=== PATIENT | female | born 1940 | race Caucasian/White ===

== ENCOUNTER 2019-07-15 10:46 | Inpatient (IN) | payer OTHER ==
[~2019-07-15] VITALS: Ht 154.9 cm; Wt 53.1 kg
[2019-07-15 10:48] VITALS: BP 140/64
[2019-07-15 11:40] LABS: ABSOLUTE NEUTROPHILS 3.2 thou/uL (1.4-8.2); BASOPHILS 0.5 % (0.0-2.0); EOSINOPHILS 1.5 % (0.0-3.0); HEMATOCRIT 38.5 % (37.0-47.0); LYMPHOCYTES 11.4 % (24.0-44.0); MCH 30.3 pg (26.0-34.0); MCHC 33.7 g/dL (28.0-37.0); MCV 89.8 fL (80.0-100.0); MONOCYTES 10.8 % (1.0-8.0); PLATELET COUNT 222 thou/uL (150-400); POLYS 75.8 % (36.0-66.0); RBC 4.29 mil/uL (4.20-5.00); WBC 4.3 thou/uL (4.0-11.0)
[2019-07-15 11:51] LABS: ANION GAP 9 mmol/L (7-16); BUN 13 mg/dL (7-18); CALCIUM 9.2 mg/dL (8.5-10.1); CHLORIDE 105 mmol/L (98-107); CO2 26 mmol/L (21-32); CREATININE 0.8 mg/dL (0.6-1.0); GLUCOSE 107 mg/dL (74-106); POTASSIUM 4.2 mmol/L (3.5-5.1); SODIUM 140 mmol/L (136-145)
[2019-07-15 11:58] LABS: URINE BILIRUBIN NEGATIVE (Negative); URINE BLOOD NEGATIVE (Negative); URINE CLARITY CLEAR; URINE COLOR YELLOW; URINE GLUCOSE-RANDOM* NEGATIVE (Negative); URINE KETONES NEGATIVE (Negative); URINE LEUKOCYTES-REFLEX TRACE (Negative); URINE NITRITE-REFLEX NEGATIVE (Negative); URINE PROTEIN (DIPSTICK) NEGATIVE (Negative); URINE SPECIFIC GRAVITY 1.015 (1.005-1.035); URINE UROBILINOGEN 0.2 E.U./dl (0.2-1.0)
[2019-07-15 11:58] LABS: ALBUMIN 3.1 g/dL (3.4-5.0); SGOT 18 U/L (15-37); SGPT 21 U/L (30-65); TOTAL BILIRUBIN 0.8 mg/dL (<0.1-1.0); TOTAL PROTEIN 6.9 g/dL (6.4-8.2)
[2019-07-15 11:59] LABS: SALICYLATE < 2.8 mg/dL (2.8-20.0)
[2019-07-15 12:07] LABS: AMP/METHAMP Negative (Negative); BARBITURATES Negative (Negative); BENZODIAZEPINES Negative (Negative); COCAINE Negative (Negative); METHADONE Negative (Negative); OPIATES Negative (Negative); PCP Negative (Negative)
[2019-07-15 12:35] VITALS: BP 140/64
[2019-07-15 12:57] VITALS: BP 140/64
--- NOTE | 2019-07-15 13:51 | EKG ---
[facility] [place] [address] ELECTROCARDIOGRAM REPORT Name: KENJIFAISAL Room #: 52-A ADM IN M.R.#: [id number] Admission: 07/15/19 Attend Phys: Terrell Petersen DO Discharge: Date of : 40 Report #: [id number] THIS REPORT FOR: //name// [facility] ED Test Date: 2019-07-15 Test Time: 11:07:50 Pat Name: FAISAL PHILLIP Department: Room: [place] Gender: F Contact And Service Clerks Supervisor: SHAE : 1940 Requested By: Zarina Bajwa Order Number: [id number] MD: Reed Benavidez Measurements Intervals [place] Rate: 83 P: 77 AR: 147 QRS: -30 QRSD: 68 T: 32 QT: 383 QTc: 450 Interpretive Statements Sinus rhythm Inferior infarct, old Poor R wave progression Artifact in lead(s) I,II,III,aVR,aVL,aVF No previous ECG available for comparison Electronically Signed On 07-15-2019 13:51:23 PLATE GRAINER by Reed Benavidez [email or web address] <ELECTRONICALLY SIGNED> By: Reed Benavidez MD, [facility] 07/15/19 1351 1107 1107 Reed Benavidez MD, [facility] /EPI
--- NOTE | 2019-07-15 14:26 | NUR ---
Gefof met with pt to start the intake assessment. Pt was disorganized and a poor historian. Sw also met with dght before she left the unit and she completed the assessment. Pt has private funds and lives at the [facility]. Dght is not staisfied with the level of dementia and is looking for alternate housing. GEOFF provided her with a list of [place] memory care to look at this weekend and set up a fmaily meeting on 07/20 at 11:45 am
[2019-07-15] MEDS ORDERED: ALENDRONATE SOD70 MG PO (14:54)
[2019-07-15] MEDS ORDERED: CHILDREN'S ASPI81 M1 PO (14:55)
[2019-07-15] MEDS ORDERED: ATORVASTATIN CA20 MG PO (14:56)
[2019-07-15] MEDS ORDERED: CALCIUM500 MG PO (14:59)
[2019-07-15] MEDS ORDERED: FLUOXETINE HCL10 M1 PO (15:00)
[2019-07-15] MEDS ORDERED: CLONAZEPAM 0.50.5 M1 PO ×2 (15:02→15:16)
[2019-07-15] MEDS ORDERED: LORAZEPAM 0.50.5 MG PO (15:06)
--- NOTE | 2019-07-15 15:06 | NUR ---
SW completed the intake assessment and TP.
[2019-07-15] MEDS ORDERED: MELATONIN3 M1 PO (15:07)
[2019-07-15] MEDS ORDERED: SUPER THERAVIT1 EACH PO (15:09)
[2019-07-15] MEDS ORDERED: PRESERVISION A1 EACH PO (15:09)
[2019-07-15] MEDS ORDERED: SEROQUEL 50 MG50 M1 PO ×3 (15:11→15:12)
[2019-07-15] MEDS ORDERED: ACETAMINOPHEN PO (15:15)
[2019-07-15] MEDS ORDERED: SEROQUEL 25 MG25 MG PO (15:17)
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
--- NOTE | 2019-07-15 22:06 | NUR ---
ASSUMED CARE ON 07/15/18 @ 19:30, IN BED EYES CLOSED, RESPIRATIONS EVEN AND UNLABORED. ONE ON ONE SITTER WITH PATIENT.
--- NOTE | 2019-07-16 01:00 | NUR ---
AWOKE @ 0030, TOOK SHEETS AND BLANKETS OFF THE BED, URINATED ON THE FLOOR, TOOK CLOTHES OFF, POURED WATER INTO THE HEATER VENT, TRIED TO TAKE ALL THE HVAC AND OXYGEN BOXES OFF THE WALL, WALKED AT A FAST PACE AROUND THE ROOM LOOKING FOR SOMETHING TO PUSH, PULL OR TEAR OFF. ORDER OBTAINED FROM ROZ KELLEY NP FOR 10MG GEODON IM. GIVEN WITH X1 SECURITY AND X3 NURSING STAFF AT 0045. INJECTION GIVEN IN THE RIGHT BUTTOCK, TOLERATED WELL. PATIENT WALKED THE HALLS FOR ABOUT 10 MINUTES AND THEN LAID DOWN IN BED. ONE ON ONE SUPERVISION DURING THIS TIME.
[2019-07-16 01:12] VITALS: BP 140/64
--- NOTE | 2019-07-16 03:38 | NUR ---
AWOKE @ 0300 AND WAS CHATTING WITH THE ONE ON ONE SITTER ABOUT [place]. PROVIDED PUDDING FOR A SNACK, ATE A LITTLE PUDDING AND THEN WENT BACK TO SLEEP. BED IN LOW POSITION, BED ALARM SET, WILL CONTINUE TO MONITOR ON A ONE ON ONE BASIS UNTIL PATIENT GOES TO SLEEP.
--- NOTE | 2019-07-16 05:35 | NUR ---
slept 6 hours overnight
[2019-07-16 08:30] VITALS: BP 118/57
--- NOTE | 2019-07-16 09:12 | NUR ---
PT UP AD SOMMER THIS AM WITH 1:1 SITTER. PT DID TAKE TIME TO EAT BREAKFAST. PT TOOK MEDS WHOLE. PT NEEDED TO HAVE SOME MEDS PUT IN YOGART. PT WANTED TO PUT MED CUP IN POCKET IN GOWN, NO POCKET THERE. PT RAMBLES IN SPEECH. PT DID SIT A LITTLE THIS AM WITH WOODEN PUZZLE PIECES. PT DOES NAP A LITTLE BIT THIS AM.
--- NOTE | 2019-07-16 11:49 | EKG ---
[facility] [address] [address] [place] [address] ELECTROCARDIOGRAM REPORT Name: ADALID PHILLIPLINE Room #: 52-A ADM IN M.R.#: [id number] Admission: 07/15/19 Attend Phys: Terrell Petersen DO Discharge: Date of : 40 Report #: [id number] THIS REPORT FOR: //name// [facility] ED Test Date: 2019-07-15 Test Time: 11:25:24 Pat Name: FAISAL PHILLIP Department: Room: 52 A Gender: F Solar Installation Technician: SHAE : 1940 Requested By: Terrell Petersen Order Number: [id number] MD: Reed Benavidez Measurements Intervals [place] Rate: 78 P: [place]: QRS: 2 QRSD: 91 T: 35 QT: 408 QTc: 465 Interpretive Statements Atrial fibrillation Compared to ECG 07/15/2019 11:07:50 Atrial fibrillation has replaced sinus rhythm Electronically Signed On 07-16-2019 11:48:24 DENTAL EQUIPMENT INSTALLER AND SERVICER by Reed Benavidez [email or web address] <ELECTRONICALLY SIGNED> By: Reed Benavidez MD, [facility] 07/16/19 1148 1125 1125 Reed Benavidez MD, FAC /EPI
--- NOTE | 2019-07-16 13:14 | NUR ---
PT WALKING AROUND UNIT PACING. PT WORRIED ABOUT TAXES. PT DIDN'T WANT TO EAT LUNCH DUE TO WORRING ABOUT TAXES.
--- NOTE | 2019-07-16 16:47 | NUR ---
PT UP PACING IN THE RESENDIZ. PT GRABBING ITEMS AND TALKING TO OTHER PT FAMILY MEMBERS. GIVING SEROQUEL 50MG PO IN VANELLA PUDDING. PT SMELLED IT AND STATED THAT IT HAD PEPPERMINT IN IT. WILL TRY TO GIVE WITH SUPPER.
--- NOTE | 2019-07-16 16:57 | NUR ---
PT TOOK SEROQUEL 50MG PO CRUSHED IN PUDDING WITH ASSISTANCE FROM RAVINDER GOFF GEOLOGICAL SCIENCE TEACHER. PT MOVING TABLES AND CHAIRS IN DINING ROOM.
--- NOTE | 2019-07-16 18:23 | NUR ---
PT STILL PACING UP THE RESENDIZ AND RUNNING. PT TRYING TO FLIP OVER CHAIRS TO SEE IF THEY ARE MADE RIGHT. PT ALSO RAMBING CHAIR INTO A DOOR.
--- NOTE | 2019-07-17 00:25 | NUR ---
PATIENT AOX1 CONFUSED AND FORGETFUL. PATIENT IS NOT ABLE TO PARTICIPATE WITH ASSESSMENT. PATIENT HAS DISORGANISED SPEECH.PATIENT WAS MANIC THIS SHIFT, AND COULD NOT SIT AFTER SEVERAL ATTEMPT, PATIENT WAS GETTING AGITATED WITH STAFF WHEN STAFF TRYING TO REDIRECT .PIPPA GARCIA GIVEN PER DR. MALDONADO. PATIENT TOOK HS MEDS WITH ALOT OF ENCOURAGEMENT. PATIENT IS ON 1:1 FOR SAFETY WHILE AWAKE. PATIENT IS EASY TO REDIRECT AT TIMES. PATIENT HAD A FLAT AFFECT, POOR EYE CONTACT, FAIR GROOMING AND HYGIENE. PATIENT IN BED ASLEEP AT THIS TIME BREATHING REGULAR AND UNLABOURED.
[2019-07-17 09:26] VITALS: BP 149/79
--- NOTE | 2019-07-17 10:57 | NUR ---
Has been up and down, 1:1 observation while awake, she is less figity, but still to the point needs redirected multiple times, she has been seen pacing halls in a rapid speed, again requested her slow down which she does, she ate some of her breakfast and will sit quietly for a short time, she has also gone to her room to lay down as well, she is alert but confused oriented to name only, she took meds crushed in applesauce, voices no SI/HI or AVH. Continue to monitor for safety and behaviors.
[2019-07-17 20:25] VITALS: BP 118/60
--- NOTE | 2019-07-18 01:43 | NUR ---
ASSUMED CARE FROM DAY SHIFT PT PACING THE DAY ROOM WITH 1:1 STAFF , PICKING UP TRASH BAG DUMPING ON FLOOR AND THROWING OVER AND TURNING OVER CHAIRS, PT TOLTALLY CONFUSED UNABLE TO FOLLOW DIRECTION OR COMMAND. PRN GEODON GIVEN, TO NO EFFECT. PT THEN PULLED SHIRT OFF IN DAY ROOM EXPOSING SELF. PT THEN TAKEN BACK TO ROOM AND KEPT THERE WITH STAFF MEMBER. CASH PROCESSOR CALLED AND HALDOL AND ATIVAN REPEATED. AROUND 2340 PT WAS ABLE TO CLIMB INTO BED AND SLEEP. FREQ CHECK AND BED ALARM ON FOR SAFETY. WILL CONITNUE TO FOLLOW CURRENT PLAN OF CARE AND WILL REPORT CHANGES OR ABNORMAL FININGS.
[2019-07-18 09:22] VITALS: BP 150/56
--- NOTE | 2019-07-18 09:27 | NUR ---
SW received an email from [facility] requesting a referal packet. Packet sent
--- NOTE | 2019-07-18 13:02 | NUR ---
SW called [facility] and left a VM regarding placement referrals to be sent and that insurance was coevring until07/25.
--- NOTE | 2019-07-18 17:30 | NUR ---
Up pacing around unit without s/o aggression. Alert, no verbalizations or behaviors suggesstive of SI/HI. Orientated to self only. Redirectable when taking off clothes pulling objects off of shelves in room ect. Breath sounds clear t/o, bilaterally equal. Reg HR auscultated. Color pink with brisk capillary refill and palpable peripheral pulses. Active bowel sounds over soft, flat abdomen. Reg gait. 1500 Becoming agitated. Pushing 1:1 XEROX MACHINE OPERATOR away. Becoming more intrusive with peers. Scheduled quetipine given. 1630 XEROX MACHINE OPERATOR reports that quetipine did not change behavior. Continues to pace and be intrusive. Much less receptive to direction. XEROX MACHINE OPERATOR states that she is becoming more touchy feely with other pts. 10 mg Geodon given per R vastus lateralis.
[2019-07-18 19:50] VITALS: BP 106/75
--- NOTE | 2019-07-19 04:17 | NUR ---
ASSUMED CARE OF THIS PATIENT AT 1900 FOR CERTIFIED SCRUM MASTER. SHE WAS UP ENTIRE EVENING UNTIL APPROX 0300. ATTEMPTING TO PULL THINGS OFF THE WALL, TAKING THINGS FROM OTHER PATIENTS, TURNING FURNITURE OVER. VERY DIFFICULT TO REDIRECT. ORIENTED TO SELF ONLY. SPEAKING NONSENSICALLY. DID TAKE PO MEDS CRUSHED IN ICE CREAM WITH THE ONLY DIFFICULTY BEING GETTING HER TO STAND STILL. RECIEVED PRN MEDS AND A ONE TIME THORAZINE ORDER. FINALLY GOT TO BED AND APPEARS TO BE SLEEPING SOUNDLY AT THIS TIME. NO APPARENT DISTRESS. NO C/O. WILL CONTINUE TO MONITOR
--- NOTE | 2019-07-19 12:45 | NUR ---
AT 0710 ASSUMED CARE OF PATIENT ON 07/19/19. PATIENT OBSERVED WALKING HALLWAYS AND DAYROOM LOOKING TO GET IN CABINETS AND DOORS. UNABLE TO REDERECT PATIENT. PATIENT IS ON 1:1 AT THIS TIME. AT 720 PATIENT NOTED TO BE ASLEEP ON COUCH IN DAYROOM. WILL CONTINUE TO OBSERVE.
[2019-07-19 15:07] VITALS: BP 118/65
--- NOTE | 2019-07-19 15:25 | NUR ---
1300 PATIENT WILL NOT SIT STILL. MOVES AROUND DAYROOM IN ATTEMPTING TO GET INTO EVERY DOOR OR FIDGITING WITH OTHER PATIENTS. AT 1400 PATIENT IN TRYING TO GET UP, LAB EASTON ON. PATIENT IS NON STOP AND WILL NOT SIT STILL. DOCOTORS ORDER RECIEVED FOR 1X IM SHOT OF THORAZINE 25MG. IM SHOT GIVEN AT 1450. PATIENT BACK TO DAYROOM IN .
--- NOTE | 2019-07-20 03:14 | NUR ---
ASSUMED CARE OF THIS PATIENT AT 1900. REMAINS ANXIOUS AND MANIC. SLEEPING VERY LITTLE. HAS NOT BEEN DESTRUCTIVE THIS EVENING. DID RECIEVE PRN. NO C/O. NO APPARENT PHYSICAL DISTRESS. TAKES MEDS CRUSHED IN ICE CREAM WITHOUT DIFFICULTY. WILL CONTINUE TO MONITOR
--- NOTE | 2019-07-20 07:30 | NUR ---
ASSUMED CARE OF PATIENT THIS AM. PATIENT SITTING IN CHAIR IN [facility]. PATIENT CALM AND PLEASANT THIS AM. PATIENT HAS A ONE ON ONE SITTER. PATIENTS SPEECH IS GARBLED AND APHASIC. PATIENT DENIES PAIN. PATIENT AMBULATES WITHOUT ASSISTANCE. PATIENTS ASSESSMENT SHOWS CLEAR BREATH SOUNDS, HYPOACTIVE BOWEL SOUNDS, AND S1 S2 HEARD WITH AUSCULTATION. PATIENT MUCH MORE RELAXED TODAY.
[2019-07-20 08:00] VITALS: BP 101/59
[2019-07-20 08:53] VITALS: BP 101/59
--- NOTE | 2019-07-20 16:52 | NUR ---
Date of Admission: 07/15/19 Date of Activity Therapy Assessment: 07/16/2019 Activity Goal:1:1 session Initial Goal:Pt to complete one 1:1 session per day with ACCOUNTS ADJUSTABLE CLERK to increase appropriate social interactions on the milieu. Weekly progress towards goal: Did not achieve-partly due to staffing issues. Group participation level: minimal Behaviors observed: wandering, poor boundaries, intrusive, unable to follow direction, easily agitated. Plan: No change towards goal
[2019-07-20 19:28] VITALS: BP 132/58
[2019-07-20 22:34] VITALS: BP 132/58
--- NOTE | 2019-07-21 03:11 | NUR ---
PT OUT ON UNIT AND INTERACTING APPROPRIATLY. REMAINS ON 1:1. REMAINS UNPREDICTABLE, BUT BEHAVIOR MUCH IMPROVED SINCE I LAST CARED FOR HER. AFTER SNACK, TOOK HS MEDS W/O PROBLEM. PT HAS BEEN UP ALL NIGHT WITH ONLY A SHORT NAP EARLY ON. BLUNTED AFFECT.
--- NOTE | 2019-07-21 07:30 | NUR ---
Assumed care of patient this am. Patient awake sitting in wheel chair with sitter. Patients speech is garbled and nonsensical. Patient is restless. Patient can ambulate without assistance. Patient takes medications crushed in applesauce. Patients assessment shows clear breath sounds, active bowel sounds, and s1 s2 heard with auscultation.
[2019-07-21 08:00] VITALS: BP 141/63
[2019-07-21 08:33] VITALS: BP 141/63
--- NOTE | 2019-07-21 10:17 | NUR ---
Sw attempted to do 1:1 with pt but she is still unpredictable, impulsive and physically restless. Family is today. D/C plan is still memory care but assessment for new placement have not occured as there has been little to no chnage in her behavior since admission
--- NOTE | 2019-07-21 11:30 | NUR ---
Patient very restless and agitated, kicking and trying to stand up in the wheelchair. Patient recieved an IM injection of Thorazine. Will continue to monitor.
--- NOTE | 2019-07-21 12:42 | NUR ---
Geoff met with pt's dght and Dr mcaedo for a family meeting. Dr macedo reported on medication challenges and changes. Pt's dght had questions about whether the dementia or the medicaitions were causing this manic behaviors. It was explained to her that it could not be easily identified but likely her stage 6 dementia. Pt's dght was understanding and thankful for the care her mother was getting. Geoff also reached out to D CS and suggested that a visit happen for placement this or Thursday and to be informed about this prior to the visit.
[2019-07-21 19:27] VITALS: BP 133/69
--- NOTE | 2019-07-22 04:12 | NUR ---
ASSUMED CARE FROM DAY SHIFT PT SITTING IN WHEELCHAIR WITH PHANI LEMON COOPERATIVE AT THIS TIME PO MEDICATON TAKEN WITH SNACK TOLERATED WELL, PT WAS QUIET AND SLEPT THROUGHOUT ROUNDING BED ALARM ON FOR SAFETY. WILL CONITUE WITH CURRENT PLAN OF CARE.
[2019-07-22 10:36] VITALS: BP 101/58
[2019-07-22 11:49] VITALS: BP 101/58
--- NOTE | 2019-07-22 12:00 | NUR ---
ASSUMED CARE AT 0700 THIS MORNING. PT. IN BED GOTTEN UP BY POWDER LINE REPAIRER'S, TOOK HER TO THE BATHROOM. SHE REMAINS ON A 1:1 WHILE AWAKE. SHE CONTINUES TO WANDER ABOUT AIMLESSLY, STAFF BY HER SIDE. SHE REFUSED TO SIT DOWN FOR BREAKFAST, BUT DID TAKE IN A CONTAINER OF APPLESAUCE. SHE TOOK HER MEDICATIONS CRUSHED IN APPLESAUCE WITHOUT DIFFICULTIES. AFTER TAKING HER MEDICATIONS, SHE WANDERED AROUND THE UNIT FOR A WHILE AND THEN SAT AT A TABLE IN THE DINING ROOM.
[2019-07-22 19:23] VITALS: BP 119/40
[2019-07-22 21:12] VITALS: BP 114/62
--- NOTE | 2019-07-23 04:50 | NUR ---
PT CALM ET COOPERATIVE. PT CURRENTLY RESTING IN BED WITH EYES CLOSED. PT UP ET DOWN THROUGHOUT THE NOC UNTIL AFTER 1AM. PT AMBULATES HALLS AD SOMMER. PT VERY CONFUSED ET ONLY ORIENTED TO PERSON. PT LABILE AT TIMES ET SPEAKING IN NONSENSICAL TERMS. PT SLIGHTLY DIFFICULT TO REDIRECT AT TIMES. PT TAKES MEDICATIONS CRUSHED IN PUDDING WITHOUT DIFFICULTY. WILL CONTINUE TO MONITOR PER PROTOCOL.
[2019-07-23 08:00] VITALS: BP 132/67
--- NOTE | 2019-07-23 15:26 | NUR ---
GEOFF met with pt this AM. She was clear and reeady to chat. She sat in the chair and spoke about her family. Geoff later got her dght on the phone so she could enjoy some of this clarity. Later during the day this pt started to pace, and then obsess about doors- this was reported to nursing. If this continues ot trend positivily pt will be able d/c next week. GEOFF sent updates to [facility] and requested a visit for thursday assessment.
--- NOTE | 2019-07-23 16:03 | NUR ---
PATIENT ORIENTED TO SELF AND OFTEN PACING THE PSYCH UNIT AND GOING INTO PATIENT ROOMS AND LOOKING OUT THE WINDOW WITH SHORT EPISODES OF CRYING ASKING WHAT SHE NEEDS TO DUE. PATIENT USUALLY STATES SENTENCES THAT MAKE NO SENSE. PATIENT WILL SOMETIMES LOOK OUT WINDOWS AND TRY TO ORGANIZE AREAS IF THERE ARE ITEMS. PATIENT TRYS TO ORGANIZE OTHERS BELONGINGS ON THEIR FOOD TRY OR EVEN ENTER ANOTHER PATIENTS ROOM AND TRY TO ORGANIZE ITEMS OR EVEN MAKE THE BED. PATIENT GIVEN IM DOSE OF GEODON THIS AFTERNOON. PATIENT STATES SHE IS TIRED. WHEN GIVEN OPPORTUNITY TO REST PATIENT WILL NOT REST. UNABLE TO RE-DIRECT PATIENT EXCEPT FOR A FEW MINUTES. PATIENT EATS VERY LITTLE ON FOOD TRAY AND NEEDS PROMPTING TO EAT. PATIENT GIVEN SHOWER AND CHANGE OF CLOTHES TODAY. PATIENT WILL TAKE MEDS CRUSHED AND IN FOOD.
--- NOTE | 2019-07-23 18:43 | NUR ---
PATIENT CONTINUES TO PACE THIS EVENING AND RE-ARRANGE FUNITURE. ATTEMPTING TO KEEP PATIENT BUSY BY FOLDING LAUNDRY. IT HAS BEEN NECESSARY TO CLOSELY WATCH PATIENT DUE TOUCH OTHER PATIENTS BELONGINGS AND FOOD TRAYS ATTEMPTING TO ORGANIZE ITEMS. 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 REQUESTING 1:1 SITTER DUE PATIENT LACK OF BOUNDARIES AND PACING.
[2019-07-23 21:04] VITALS: BP 146/68
--- NOTE | 2019-07-24 00:21 | NUR ---
PATIENT HAD A BM IN HER ROOM ON THE FLOOR THEN PROCEEDED TO WALK THROUGH IT AND THROUGHOUT THE UNIT, STAFF ATTEMPTED TO REDIRECT HER WITH NO POSITIVE OUTCOME. GEODON IM GIVEN ORDERED.
--- NOTE | 2019-07-24 05:27 | NUR ---
PT SLIGHTLY AGITATED THIS SHIFT. PT FELL ASLEEP EARLY IN SHIFT THEN WOKE UP AROUND 0100 ET DEFECATED ON FLOOR OF ROOM. PT THEN PROCEEDED TO WALK THROUGH THE FECES UNTIL SHE CAME OUT OF ROOM INTO THE HALLWAY. PT WAS CLEANED, ROOM WAS CLEANED, ET HOUSEKEEPING WAS CALLED TO MOP FLOOR AFTER FECES HAD BEEN CLEANED BY STAFF. PT WAS GIVEN GEODON IM ET SEROQUEL PO PRN THIS SHIFT. PT FELL BACK TO SLEEP IN CHAIR IN DAYROOM AROUND 3AM. PT AMBULATES HALLS AD SOMMER. WILL CONTINUE TO MONITOR PER PROTOCOL.
[2019-07-24 07:30] VITALS: BP 149/52
[2019-07-24 09:05] VITALS: BP 149/52
--- NOTE | 2019-07-24 15:18 | NUR ---
ASSUMED CARE OF PATIENT AT 0710 AM ON 07/24/19. PATIENT AMBULATING IN RESENDIZ AT 0730 AM. AT 0745 PATIENT IN WC WITH LAP BUDDING ON, SLEEPING. PATIENT SITTING AT TABLE READY FOR BREAKFAST. PO MEDICATIONS GIVEN WITH APPLESAUCE WITHOUT DIFFICULTY. PATIENT EATING BREAKFAST WITH ASSISTANCE OF SWEATER OPERATOR. ATE 100%. PATIENT TALKING WITH SWEATER OPERATOR WITH CLEAR AND UNDERSTANDABLE WORDS. PATIENT SPEAKING CLEAR SENTENCES TALKING ABOUT HER PAST. NO COMPLAINTS OF PAIN DENIES SI/HI AND AVH. PATIENT ALERT X1. NO LOOSE STOOLS NOTED AT THIS TIME.
--- NOTE | 2019-07-24 16:38 | NUR ---
PATIENT SITTING IN WC IN DAY ROOM VISITING WITH PATIENTS AND STAFF. COMMUNICATING APPROPRIATELY AT THIS TIME.
[2019-07-24 19:53] VITALS: BP 129/67
--- NOTE | 2019-07-24 23:18 | NUR ---
ASSUMED CARE ON 07/24/19 @ 19:15, IN W/C WITH LAP EASTON IN PLACE. PROPELLING SELF AROUND THE UNIT IN HER W/C. PUSHING FURNITURE FROM HER W/C DOWN THE RESENDIZ HANDLING OTHER RESIDENTS BELONGINGS. GIVEN MEDS CRUSHED IN YOGART. NOTED TO BE MANIC, ALWAYS MOVING AND SPEAKING IN A FAST PACE, BUT USING UNRELATED WORDS AND SPEAKING OF THINGS THAT ARE NOT A CURRENT REALITY. PRN TYLENOL 650 GIVEN @ 20:50 FOR GENERAL PAIN 5/10 AND SEROQUEL 100 @ 20:50 FOR AGITATION AND SANTIAGO. REMAINS AWAKE AND IS TEARFUL OF THIS WRITING, SPEAKING OF AND A SAD MEMORY FROM HER PAST. PATIENT HAS HAD NO BM ON THIS SHIFT. WILL CONTINUE TO MONITOR Q 12 MINUTES FOR PATIENT SAFETY.
[2019-07-25 03:40] VITALS: BP 129/67
--- NOTE | 2019-07-25 06:03 | NUR ---
SLEPT 4.4 HURS
[2019-07-25 08:55] VITALS: BP 124/64
--- NOTE | 2019-07-25 11:54 | NUR ---
Nutrition: pt admitted with dementia and agitation to H unit. Seen due to LOS. Pt eating fair/highly variable amounts on regular diet. Average intake 60% over the past few days. 2 different weights taken on admit, 112# and 125#. pt is unable to relay UBW but reports no difference in the way her clothes are fitting. REC obtain new weight as last weight taken [address] will also offer ensure daily due to fair intake. Place as low risk for now.
--- NOTE | 2019-07-25 13:28 | NUR ---
[facility] came out to their assessment today. And sw recieved an email from [facility] to send the referral to [facility] to consider. This was completed. Waiting to hear from [facility]. D/C is likely after 3 positive days of limited behaviors and less manic
--- NOTE | 2019-07-25 14:14 | NUR ---
0710 ASSUMED CARE OF PATIENT ON 07/25/19. PATIENT SITTING UP IN WC IN THE DAYROOM. PATIENT MOVING AROUND IN WC WITH LAP EASTON IN PLACE. CONTINUES TO GRAB AT OTHER PATIENTS AND LOOKING TO OPEN DOORS AND OR CABINETS. PATIENT MOVED BY TIN STACKER TO A DIFFRENT AREA IN DAYROOM. AT 0930 PATIENT ASLEEP IN WC WHILE SITTING WITH OTHER PATIENTS ATTENDING IN GROUP. MEDIVATION GIVEN CRUSHED IN APPLESAUCE WITHOUT DIFFICULTY. WHEN ASKED PATIENT ABOUT PAIN PATIENT STATED NO. TIN STACKER ASKED PATIENT ABOUT A GOAL AND PATIENT RESPONDED WITH " FIRE HAS AND ACTIVATION IS DONE. PATIENT UNABLE TO VOICE GOAL OR CONCERNS. PATIENT MOVING SELF IN WC IN DAYROOM. SIPS OF H2O GIVEN.
--- NOTE | 2019-07-25 15:40 | NUR ---
PATIENT ROAMING RESENDIZ IN LOOKING FOR DOORS TO OPEN AND ROOMS TO ENTER. 1500 MED GIVEN IN APPLESAUCE, WHOLE CONTAINER OF APPLESAUCE EATEN. PATIENT STARTS TALKING ABOUT PAST TIMES IN [place]. PATIENT STATES "THE ADS WERE HARD IN [place], THERE WERE ABOUT 4 ADS". PATIENT LEAVES WRITERS SITE AND CONTINUES TO WHEEL HERSELF DOWN THE RESENDIZ. WILL CONTINUE TO MONITOR SAFETY OF PATIENT.
--- NOTE | 2019-07-25 16:12 | NUR ---
per akash with [employer] request to have copy of dpoa on file faxed to [phone], phone # [phone], cm faxed copy.
--- NOTE | 2019-07-25 16:15 | NUR ---
SW sent a referral to [facility] per family request.
--- NOTE | 2019-07-25 16:27 | NUR ---
[facility] called and stated they were interested in the pt and would be coming out later this week to complete their assessment. Sw reported all of this to daughter via email.
[2019-07-25 19:24] VITALS: BP 140/57
--- NOTE | 2019-07-26 05:25 | NUR ---
PT AMBULATING HALLS VIA W/C PUSHING FURNITURE IN DAYROOM AND ATTEMPTING TO GO INTO OTHER ROOMS OF PATIENTS. PT WITH SLIGHT AGITATION WHEN ATTEMPTING TO REDIRECT FROM OTHER PATIENT ROOMS. PT ONLY SLEPT APPROXIMATELY 1-2 HOURS THIS SHIFT. UP IN W/C IN DAYROOM MOST OF SHIFT. WILL CONTINUE TO MONITOR PER PROTOCOL.
[2019-07-26 08:00] VITALS: BP 135/76
[2019-07-26 09:46] VITALS: BP 135/76
--- NOTE | 2019-07-26 13:12 | NUR ---
SW sent a referral to [facility] per family request.
--- NOTE | 2019-07-26 14:42 | NUR ---
ASSUMED CARE OF PATIENT AT 0720 ON 07/26/19. PATIENT NOTED TO BE IN HALLWAY WANDERING IN WC. 0730 PATIENT SITTING AT TABLE QUIETLY. AT 0830 PATIENT ASSESSED AT THIS TIME. UNABLE TO ASSESS, PATIENT STARTS TALKING ABOUT PAST SITUATIONS NOT RELATED TO WHAT IS BEING ASKED. PATIENT DOES SEEM TO CALM DOWN IF YOU SIT AND TALK TO PATIENT- DOES NOT SEEM TO BE SO BUSY LOOKING FOR OPEN DOORS OR GRABING PEOPLE. WILL CONVERSE WITH HARD ROCK DRILL OPERATOR REGARDING DIFFRENT SUBJECT OF PAST SITUATIONS OF HER LIFE. AT 1030 PATIENT IN SHOWER WITH ASSISTANCE OF ADVOCACY DIRECTOR. 1130 PATIENT WANDERING THE UNIT IN A WC WITH LAP EASTON LOOKING FOR OPEN DOORS. WANDER THE UNIT LOOKING FOR OPEN DOORS. PATIENT IN WC WITH LAP EASTON ON
--- NOTE | 2019-07-26 18:10 | NUR ---
AT 1745 BRIEF CHANGED, BOTTOM ASSESSED AND NOTED TO BE RED. MOISTURE BARRIER APPLIED AND BRIEF ON. PATIENT SEEMS A BIT WARM TEMP CHECKED WITH RESULTS OF 98.7. PATIENT AMBULATING IN RESENDIZ. PATIENT SQUATS IN CORNER OF THE RESENDIZ AND PEES PATIENT CLEANED UP AND PATIENT OUT WALKING RESENDIZ AGAIN. WILL CONTINUE TO OBSERVE FOR SAFETY.
--- NOTE | 2019-07-26 18:30 | NUR ---
PATIENT SITTING IN CHAIR IN DAYROOM ASLEEP AT THIS TIME.
[2019-07-26 20:19] VITALS: BP 109/73
--- NOTE | 2019-07-27 03:03 | NUR ---
ASSUMED CARE OF PATIENT ON 07/26/2019 AT APPROXIMATELY 1915. THROUGHOUT THE EVENING PATIENT HAS BEEN ON THE COUCH WITH EYES CLOSED. SHE DOES OPEN HER EYES SPONTANEOUSLY TO THIS NURSES VOICE. SHE DID NOT VERBALIZE FEELINGS, APPEARS WITH A FLAT AFFECT, AND GUARDED. SHE DID NOT REPORT SI SH HI OR HALLUCINATIONS. SHE DOES NOT APPEAR TO BE IN MEDICAL DISTRESS. NURSING WILL MAINTAIN ALL PRECAUTIONS TO ENSURE SAFETY AT ALL TIMES.
[2019-07-27 09:24] VITALS: BP 108/54
--- NOTE | 2019-07-27 12:38 | NUR ---
During treatment team meeting this AM it was decided that pt still needs further inpt days, as she is still manic, running around the unit and getting into others personal things and rooms. Pt was visited by [facility] this AM and are willing to accept her early next week. Still waiting for a few more " good days" and [facility] or [facility] would consider this pt too.
--- NOTE | 2019-07-27 13:47 | NUR ---
Sitting in day room most of morning. Calm and cooperative. No s/o distress. Alert and orientated. Able to state name but states she is in [place]. Unable to state day. Denies pain and SI/HI. Breath sounds clear t/o, bilaterally equal. Reg HR auscultated. Color pink with brisk capillary refill and palpable peripheral pulses. Brief wet. Continent of cloudy yellow urine per toilet. Dr. Petersen notified, straight cath UA done per order without difficulty. Small amount cloudy yellow urine, sent to lab for UA. Active bowel sounds over soft, flat abdomen. Now up ambulating t/o unit without s/o distress.
[2019-07-27 14:53] LABS: URINE BLOOD 3+ (Negative); URINE CLARITY CLOUDY; URINE COLOR YELLOW; URINE GLUCOSE-RANDOM* NEGATIVE (Negative); URINE KETONES TRACE (Negative); URINE PROTEIN (DIPSTICK) 2+ (Negative); URINE SPECIFIC GRAVITY >= 1.030 (1.005-1.035); URINE UROBILINOGEN 0.2 E.U./dl (0.2-1.0)
[2019-07-27 14:55] LABS: URINE LEUKOCYTES-REFLEX 1+ (Negative); URINE NITRITE-REFLEX POSITIVE (Negative)
[2019-07-27 14:56] LABS: ICTOTEST (BILI CONFIRMATORY) Negative (Negative); URINE BILIRUBIN NEGATIVE (Negative)
[2019-07-27 15:09] LABS: SQUAMOUS 0-3 Few /LPF (0-3)
[2019-07-27 15:10] LABS: BACTERIA-REFLEX >30 Many /HPF (None Seen); CASTS None Seen /LPF (None Seen); CRYSTALS None Seen /LPF (None Seen); URINE RBC 3-10 Few /HPF (0-2); URINE WBC-REFLEX >25 Many /HPF (0-5)
[2019-07-27 20:31] VITALS: BP 118/48
--- NOTE | 2019-07-28 04:40 | NUR ---
PT CALM ET COOPERATIVE THIS SHIFT. PT TOOK MEDICATIONS CRUSHED IN PUDDING WITHOUT DIFFICULTY. PT AMBULATING WITH ASSISTANCE OF W/C ET ANSHUL MCCORMACK THIS SHIFT. PT WOULD NOT STAY IN BED SO WAS ASSISTED INTO [facility]ANGEL-CHAIR ET IS CURRENTLY RESTING IN CHAIR WITH EYES CLOSED IN DAYROOM. PT WAS GIVEN SEROQUEL 100MG PO FOR ANXIETY. WILL CONTINUE TO MONITOR PER PROTOCOL.
--- NOTE | 2019-07-28 08:29 | NUR ---
07-27-19. Geoff met with county tax assessor from [facility], and reported that pt might be ready for d/c next week, as we are still making adjustments to her meds. [facility], [facility], [facility] and [facility] are all considering this pt. GEOFF called and left 2 VM for dght today with this information. Dght will provide her #1- 4 choices.
[2019-07-28 09:18] VITALS: BP 117/56
--- NOTE | 2019-07-28 14:57 | NUR ---
Sw spoke with pt's dght and she decided that [facility] is the best fit for her mom right now. SW ecnouraged her to take some time this weekend and self care, and that d/c will likely happen early next week. She was very pleased with this outcome. Sw called [facility] and reported that she had chosen them and that there would be updates on Thursday.
--- NOTE | 2019-07-28 16:28 | NUR ---
Sleeping in dining room in chair without s/o distress. Placed in recliner for comfort. Arouses easily, obeys commands and is compliant with meds. Orientated to self only. Denies SI/HI, pain. Breath sounds clear t/o, bilaterally equal. Reg HR auscultated. Color pink with brisk capillary refill and palpable peripheral pulses. Voiding yellow urine both continent and incontinent. Active bowel sounds over soft, flat abdomenl Light brown stool per toilet. Coccyx area reddened but improved since yesterday, barrier cream applied. 1600 Up ambulating t/o unit without s/o distress. Took crushed meds without diff.
[2019-07-28 19:45] VITALS: BP 115/58
--- NOTE | 2019-07-29 03:49 | NUR ---
Pt slightly agitated this shift. Pt took meds crushed in pudding without difficulty. Pt ambulating in halls early in shift with only slightly unsteady gait. Pt was given PRN Seroquel for mild agitation/anxiety. Pt rested in recliner with eyes closed midway through shift but was transferred to bed after toileting et is currently resting in bed with eyes closed. No further behaviors noted et all health assessments WNL. Will continue to monitor per protocol.
[2019-07-29 07:35] VITALS: BP 122/55
[2019-07-29 11:41] VITALS: BP 122/55
[2019-07-29 11:52] VITALS: BP 122/55
--- NOTE | 2019-07-29 12:19 | NUR ---
1645 RESUMED CARE FROM OVERNIGHT SHIFT, PATIENT WAS UP ALERT WALKING AROUND THE DAY ROOM, STILL AT TIMES GOING INTO OTHER PATIENT'S ROOMS. PATIENT ATE BREAKFAST AND TOOK MEDICATION WITHOUT INCIDENCE. PATIENT WONDERS AROUND UNIT STILL AND HAS TO BE MONITORED FOR GOING IN [place] ROOM. COOPERATIVE, EASILY REDIRECTED, WILL CONTINUE TO MONITOR PATIENT FOR BEHAVIORS AND SAFETY.
--- NOTE | 2019-07-29 14:05 | NUR ---
SW called [facility] to confirm that d/c will be Thursday.
[2019-07-29 19:57] VITALS: BP 112/67
--- NOTE | 2019-07-30 02:02 | NUR ---
ASSUMED CARE FROM DAY SHIFT PT WLKING INTO PT ROOMS AND TOUCHING OTHER PATIENTS ON UNIT, PT REMANINS CONFUSED ALERT TO SELF ONLY, AND WILL NOT FOLLOW COMMANDS . PT DID TAKE PO MEDICATION WITH APPLE SAUCE. HS CARE GIVEN DUE TO PT BEING INCONTINENT OF URINE. PT THEN WENT TO SLEEP AROUND 2230. RESTING QUIETLY WITH BED ALARM IN PLACE. FREQ ROUNDING FOR SAFETY. WILL CONITNUE WITH CURRENT PLAN OF CARE AND WILL REPORT CHANGES.
[2019-07-30 08:21] VITALS: BP 139/58
--- NOTE | 2019-07-30 10:12 | NUR ---
0700 Sleeping without s/o distress. Awakens easily. Alert and orientated to person only. Confused speech at times. Denies SI/HI. Breath sounds clear t/o, bilaterally equal. Reg HR auscultated. Color pink with brisk capillary refill and palpable peripheral pulses. Brief dry. Active bowel sounds over soft, flat abdomen. Buttocks reddened with dry skin, no breakdown, improved from 2 days ago. Assisted with dressing. Up ambulating with steady gait. Ate 90% of breakfast with extra carton of milk and 100% of supplement.
[2019-07-30 11:00] VITALS: BP 127/63
[2019-07-30 19:23] VITALS: BP 129/57
--- NOTE | 2019-07-31 02:09 | NUR ---
ASSUMED CARE FROM DAY SHIFT PT UP WALKING IN DAYROOM AND HALLWAY , PT CONFUSED AND UN-DIRECTABLE, PT ABLE TO TAKE PO MEDICATION AND PRN GIVEN FOR AGITATION. PT THEN ASSISTED TO ROOM AND PT FELL ASLEEP. THEN AFTER 2 HOURS PT AWAKE UP IN CORNER OF ROOM AND PROCEEDED TO VOID AND HAVE NBOWEL MOVEMENT ON SELF. PT CLEAN AND PLACED BACK IN BED WITH ALARM IN PLACED. WILL CONTINUE WITH FREQ CHECKS, AND WILL REPORT CHANGES OR ABNORMAL.
[2019-07-31 07:49] VITALS: BP 119/63
--- NOTE | 2019-07-31 07:52 | NUR ---
ASSUMED CARE OF PT AT 0715. PT IS A&O TO SELF. APPEARS CONFUSED. IS STABLE. PT IS CURRENTLY SITTING IN DINNING ROOM AWAITING BREAKFAST. VITALS & LABS REVIEWED. PT IS CALM. WILL CONTINUE TO MONITOR.
[2019-07-31 19:37] VITALS: BP 106/54
--- NOTE | 2019-08-01 03:19 | NUR ---
Assumed care of pt @ 1900. Pt calm, cooperative, and very talkative this shift. Pt took meds crushed in pudding without difficulty. VSWNL. Pt ambulating via assistance of w/c with lap mary this shift. No intrusive behaviors noted this shift. Pt currently resting with eyes closed on couch in dayroom. Will continue to monitor per protocol.
[2019-08-01 07:30] VITALS: BP 111/54
--- NOTE | 2019-08-01 11:07 | NUR ---
Nutrition: pt admitted with dementia, agitation and seen per followup. po intake 50-100% of meals. 100% ensure daily. New weight obtained 117#. Prior weights of 123# and 112# on admit. Unsure of accuracy of either and pt is unable to verbalize. Plan continue same interventions and keep as low risk due to overall good intake.
--- NOTE | 2019-08-01 12:38 | NUR ---
[facility] to [facility] via [facility] confirming d/c for tomorrow. Sw called and spoke [facility] and Sw will set up transportation for 11am tomorrow. Geoff relayed this information to [facility] and nursing staff.
--- NOTE | 2019-08-01 15:21 | NUR ---
PT IS ALERT TO SELF, VERY CONFUSED. AMBULATES SELF AROUND UNIT AND IN PATIENTS ROOMS. TAKES HER MEDS CRUSHES W/O ANY COMPS. WILL CONT POC.
--- NOTE | 2019-08-01 16:14 | NUR ---
SW called and left another VM with pt's dght reassuring that d/c was stable . And made a packet and left it on the chart.
[2019-08-01 19:39] VITALS: BP 112/72
--- NOTE | 2019-08-02 04:09 | NUR ---
Assumed care of pt @ 1900. Pt calm et cooperative this shift. Pt took meds crushed in pudding without difficulty. Pt ambulating halls ad yue with steady gait this shift. VSWNL. Assessment done et found to have no abnormalities noted at present time. Pt continues to rest quietly in recliner in dayroom with eyes closed. Will continue to monitor per protocol.
[2019-08-02 07:50] VITALS: BP 113/56
[2019-08-02 08:00] VITALS: BP 113/56
--- NOTE | 2019-08-02 08:11 | NUR ---
PT TOOK MEDS CRUSHED IN PUDDING. PT TOOK REST OF PUDDING. PT UP AD SOMMER WITHOUT ANY ISSUES. PT GOES INTO OTHERS ROOMS AND TAKES ITEMS. UNABLE TO KEEP FOCUSED ON TASK AND SPEECH. PT LIKES TO FOLD LAUNDRY AND KEEP BUSY.
--- NOTE | 2019-08-02 10:14 | NUR ---
PT FOLDING SOME CLOTHES AND RUNNING UP TO STAFF AND ASKING QUESTIONS.
[2019-08-02] MEDS ORDERED: DEPAKOTE SPRIN125 MG PO (10:44)
[2019-08-02] MEDS ORDERED: LIPITOR 20 MG T20 M1 PO (10:45)
[2019-08-02] MEDS ORDERED: CHLORPROMAZINE25 M1 PO (10:46)
[2019-08-02] MEDS ORDERED: ACIDOPHILUS1 EAC4 PO (10:47)
[2019-08-02] MEDS ORDERED: VITAMIN D325 MCG PO (10:47)
--- NOTE | 2019-08-02 11:29 | NUR ---
PT NEEDED ENCOURAGEMENT TO GET INTO THE W/C FOR TRANSPORT. PT BAGS PUT ON LAP AND PT PLACED BAGS BACK ON FLOOR. PT LEFT WITH STAFF TO W/C V[facility].
--- NOTE | 2019-08-02 11:41 | NUR ---
DIAMANTE faxed d/c summary and orders to [facility]. Updated packet.
--- NOTE | 2019-08-02 11:48 | NUR ---
GAVE REPORT TO [facility].
--- NOTE | 2019-08-04 20:20 | D ---
[facility] [place] [address] DISCHARGE SUMMARY Name: FAISAL PHILLIP Room #: 522A-A [facility] IN M.R.#: [id number] Admission: 07/15/19 Attend Phys: Terrell Petersen DO Discharge: 08/02/19 Date of : 40 Report #: [id number] THIS REPORT FOR: //name// CC: Terrell Petersen [facility] unknown DATE OF SERVICE: 08/02/2019 INPATIENT PSYCHIATRIC DISCHARGE SUMMARY ATTENDING PHYSICIAN: Terrell Petersen DO. LABOR OPERATOR: Dr. Mateus Hamilton. 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 MEDICAL COMORBIDITIES: Include hyperlipidemia, osteoporosis. Dr. Hamilton recommended outpatient supplements and followup. DISCHARGE DIET: Regular. Recommend Ensure daily supplement. ACTIVITY LEVEL: As tolerated. The patient requires 24/7 memory care. DISCHARGE MEDICATIONS: Atorvastatin 20 mg p.o. at bedtime for hyperlipidemia, Depakote Sprinkles 125 mg total of 625 mg sprinkles p.o. b.i.d. after meals. She is taking 2.5 mg of chlorpromazine at 0900, 1500, 2100. She is taking lactobacillus acidophilus probiotic 1 tab p.o. daily, vitamin D supplementation 5000 international units p.o. daily, aspirin 81 mg p.o. daily for cardioprotection, atorvastatin 20 mg p.o. at bedtime, fluoxetine 10 mg p.o. daily, one vitamin p.o. daily, alendronate was discontinued during the hospitalization, but that may be resumed outpatient. LABORATORY DATA: The patient's laboratories this admission, hematology was grossly normal, done on 07/15/2019. Chemistry last done on 07/15/2019 grossly normal except albumin 3.1, ALT 21, free T4 1.1, and TSH 1.936. Urinalysis showed some positives on 07/27/2019. Microbiology on 07/27/2019 was positive for E. coli. The patient's culture fortunately was pansensitive and she was treated with Bactrim-DS p.o. b.i.d. for 10 doses. DISCHARGE MEDICATIONS: Already stated. DISPOSITION: Discharging to [facility] for memory care. REASON FOR ADMISSION: Back in early July as follows, brought to the ED by her daughter, increased confusion, agitation in Memory Care facility. The [address] [address] DISCHARGE SUMMARY Name: FAISAL PHILLIP Room #: 522A-A [facility] IN M.R.#: [id number] Admission: 07/15/19 Attend Phys: Terrell Petersen, Discharge: 08/02/19 Date of : 40 Report #: [id number] patient I believe actually had been in a different assisted and when we discharged at the daughter's request. HOSPITAL COURSE: The patient was on a difficult side to stabilize. She got into things frequently, running into other patient's rooms, drinking other patients' cups, climbing over the furniture, was a bit of challenge. Over the course of hospitalization, with the introduction of chlorpromazine, the impulsivity and agitation decreased. She still required redirections at times, but was generally in good spirits and described her thought content as pleasantly confused, but she has advanced neurodegenerative process, tragically has far exceeded decline in her physical body. PHYSICAL EXAMINATION: VITAL SIGNS: At this time, temperature 36.3, pulse 67, respirations 18, BP 113/56, and O2 sat 100%. MUSCULOSKELETAL: Normal gait and station. MENTAL STATUS EXAMINATION: This is a well-developed, slightly unkempt female appearing older than stated age. Attention limited. Concentration limited. Speech is normal rate. Thought process frequently nonlinear. Thought content, bizarre, believing she has a carriage car, parked at the hospital, things such as this. Denied SI or HI. Denied hopelessness or helplessness. Memory grossly impaired. Insight impaired. Judgment impaired. Fund of knowledge well below average. PROGNOSIS: For this patient is guarded to poor given the degree of dementia and age of 79. <ELECTRONICALLY SIGNED> By: Terrell Petersen DO 08/04/192019 08 38 Terrell Petersen DO /nt
== END 2019-08-02 11:40 | DRG 57 ==
LOC: ER 10:46 → SBH 12:39 → EROBS 12:39 → SBH 12:39
PROVIDERS: Physician Assistant; ADMIT Psychiatry & Neurology Psychiatry
DX: G30.9 Alzheimer's disease, unspecified (principal); F02.81 Dementia in other diseases classified elsewhere, unspecified severity, with behavioral disturbance; F01.51 Vascular dementia, unspecified severity, with behavioral disturbance; F29 Unspecified psychosis not due to a substance or known physiological condition; E78.5 Hyperlipidemia, unspecified; M81.0 Age-related osteoporosis without current pathological fracture; I10 Essential (primary) hypertension; Z87.891 Personal history of nicotine dependence; Z99.3 Dependence on wheelchair; Z23 Encounter for immunization
CPT/HCPCS: 10880